=== PATIENT | male | born 1970 | race Caucasian/White ===

== ENCOUNTER → 2022-11-06 08:36 | Outpatient (CLI) | payer OTHER, MEDICARE, SELFPAY ==
--- NOTE | ~2022-11-06 | MR_ITS ---
EXAMINATION: MR shoulder LT wo con DATE: 11/06/2022 09:32 INDICATION: Left shoulder pain TECHNIQUE: Magnetic resonance imaging (MRI) of the left shoulder was performed without intravenous co ntrast. Sequences included axial PD-weighted FS FSE, coronal oblique PD-weighted FS FSE, coronal obli que T2-weighted FS FSE, sagittal PD-weighted FS FSE, and sagittal T1-weighted SE. COMPARISON: None. FINDINGS: Coracoacromial arch: The acromion undersurface is curved in morphology (type II). Small anterior subacromial spur at the, insertion of the normal coracoacromial ligament. Severe acromioclavicular osteoarthritis with large s ubarticular cyst at the anterior aspect of the lateral head of the clavicle. Rotator cuff: Moderate supraspinatus and infraspinatus tendinopathy. Small mild intrasubstance tear measuring up to 5 mm AP and involving up to one third of the tendon thickness at the distal insertion of the conjoin ed portion of the supraspinatus and infraspinatus tendons. Mild subscapularis tendinopathy with minim al fluid extending along a longitudinal split tears extending 2.5 cm medially from the lesser tuberos ity footplate along the otherwise intact appearing tendon fibers. There appear to be a couple likely suture anchor sites at the cephalad aspect of the lateral rim of the intertubercular groove and anter ior margin of the superior facet of the greater tuberosity suggesting prior rotator cuff repair invol ving portions of the anterior supraspinatus, cephalad subscapularis or both tendons. The teres minor tendon is normal but with moderate fatty atrophy of the teres minor muscle belly. This is of indeterm inate etiology with no evident masses or other impinging lesions at the quadrilateral space/course of the axillary nerve. Remaining rotator cuff musculature appears normal. Biceps tendon, glenoid labrum and glenohumeral cartilage: Postoperative change of prior bicipital tenodesis with anchor site at the central aspect of the inter tubercular groove. The remaining more distal tendon appears normal. Evaluation of the labrum and cart ilage is somewhat limited by suboptimal [id number] deeper tissues including at the level of the glenoid which may be related to body habitus and coil positioning. There is partial thickness cartila ge loss without degenerative subchondral changes along the cephalad third of the glenoid and along th e superomedial aspect of the humeral head. Likely SLAP tear at the posterior superior glenoid labrum. Fluid: Physiologic amount of fluid in the glenohumeral joint and biceps tendon sheath with minimal fluid and mild synovitis at the axillary and deep subscapular recesses. No loose osteochondral bodies. Small amount of fluid in the subacromial/subdeltoid bursa consistent with mild bursitis. Bones: Normal marrow signal with no edema, fracture or pathologic marrow replacing process. Mild cystic stewart ge at the anterior middle facet of the greater tuberosity near the small tear of the conjoined portio n of the supraspinatus and infraspinatus tendons. IMPRESSION: 1. Moderate supraspinatus and infraspinatus tendinopathy with very small mild partial-thickness intra substance tear near the footplate of the conjoined portion of the tendon. 2. Mild tendinopathy with longitudinal split tearing of the distal subscapularis tendon with suggesti on of suture anchors for prior rotator cuff repair at the insertion of the confluence of the distal s ubscapularis and anterior supraspinatus tendons. 3. Intact appearing bicipital tenodesis. 4. Mild glenohumeral osteoarthritis with moderate grade chondromalacia and with likely SLAP tear at t he posterosuperior glenoid labrum. 5. Severe acromioclavicular osteoarthritis. 6. Normal teres minor tendon with moderate fatty muscular atrophy which is of indeterminate etiology. 7. Mild subacromial/subdeltoid bursitis.
== END ==
PROVIDERS: PCP Nurse Practitioner Family; Visit Provider Nurse Practitioner Family
DX: M19.012 Primary osteoarthritis, left shoulder (principal); M75.22 Bicipital tendinitis, left shoulder
CPT/HCPCS: 73221